=== PATIENT | female | born 1945 | race Hispanic/Latino ===

== ENCOUNTER 2018-05-29 09:16 | Emergency (ER) | payer OTHER ==
[2018-05-29 09:20] VITALS: BMI 26.2
[2018-05-29 09:21] VITALS: TEMP 97.7; O2SAT 97
--- NOTE | 2018-05-29 10:16 | ED PDOC ---
HPI: Skin/Bite Injury Time Seen by Provider: 05/29/18 09:53 Chief Complaint (Nursing): ENT Problem Chief Complaint (Provider): Lesion on Right Ear History Per: Patient History/Exam Limitations: no limitations Onset/Duration Of Symptoms: Other (8 months ) Current Symptoms Are (Timing): Still Present Quality Of Symptoms: Painful, Itching Additional Complaint(s): 72 year old female presents to the ED for an evaluation of lesion on the right ear onset for 8 months. Patient states it is itchy and painful for which she has not seen her primary care provider. Otherwise, patient denies fever, headache or bleeding. PMD: Non [facility] Provider Past Medical History Reviewed: Historical Data, Nursing Documentation, Vital Signs Vital Signs: Last Vital Signs Temp 97.7 F 05/29/18 09:20 Pulse 65 05/29/18 09:20 Resp 16 05/29/18 09:20 BP 151/76 H 05/29/18 09:20 Pulse Ox 97 05/29/18 09:20 - Medical History PMH: Diabetes (pre-diabetic ) - Surgical History Surgical History: Hernia Repair - Family History Family History: States: Unknown Family Hx - Social History Current smoker - smoking cessation education provided: No Alcohol: None Drugs: Denies - Home Medications Home Medications: Ambulatory Orders Medication Instructions Recorded Mupirocin 2% Cream [Bactroban 1 applic TOP BID #1 tube 05/29/18 Cream] - Allergies Allergies/Adverse Reactions: Allergies Allergy/AdvReac Type Severity Reaction Status Date / Time No Known Allergies Allergy Verified 05/29/18 09:34 Review of Systems ROS Statement: Except As Marked, All Systems Reviewed And Found Negative Constitutional: Negative for: Fever ENT: Positive for: Ear Pain (right) Neurological: Negative for: Headache Physical Exam - Reviewed Nursing Documentation Reviewed: Yes Vital Signs Reviewed: Yes - Physical Exam Appears: Positive for: Non-toxic, No Acute Distress Head Exam: Positive for: ATRAUMATIC, NORMAL INSPECTION, NORMOCEPHALIC Skin: Positive for: Normal Color, Warm, Dry. Negative for: Rash ENT: Positive for: Other (wound and scar on the uppper lobe of the ear with no swelling, redness or erythema ) Neurological/Psych: Positive for: Awake, Alert, Normal Tone, Oriented (x3) - ECG O2 Sat by Pulse Oximetry: 97 (RA) Pulse Ox Interpretation: Normal Medical Decision Making Medical Decision Making: Time: 934 Impression: lesion of skin on right ear Differential Diagnosis: basal cell carcinoma Plan: Patient was referred to the card decorator and antibiotic ointment prescribed. Scribe Attestation: Documented by Mo Mancilla, acting as a scribe for Ezequiel Roberts MD Provider Scribe Attestation: All medical record entries made by the Scribe were at my direction and personally dictated by me. I have reviewed the chart and agree that the record accurately reflects my personal performance of the history, physical exam, medical decision making, and the department course for this patient. I have also personally directed, reviewed, and agree with the discharge instructions and disposition. Disposition - Clinical Impression Clinical Impression: Lesion of right earlobe - Patient ED Disposition Is Patient to be Admitted: No Doctor Will See Patient In The: Office Counseled Patient/Family Regarding: Studies Performed, Diagnosis, Need For Followup - Disposition Referrals: [facility] [Outside] [email or web address] [Outside] Disposition: Routine/Home Disposition Time: 10:20 Additional Instructions: Follow up with your PCP and dermatology within 1 week. ENRICO MCFARLAND, thank you for letting us take care of you today. Your provider was Ezequiel Roberts MD and you were treated for RT EAR INJURY. The emergency medical care you received today was directed at your acute symptoms. If you were prescribed any medication, please fill it and take as directed. It may take several days for your symptoms to resolve. Return to the Emergency Department if your symptoms worsen, do not improve, or if you have any other problems. Please contact your doctor or call one of the physicians/clinics you have been referred to that are listed on the Patient Visit Information form that is included in your discharge packet. Bring any paperwork you were given at discharge with you along with any medications you are taking to your follow up visit. Our treatment cannot replace ongoing medical care by a primary care provider outside of the emergency department. Thank you for allowing the [facility] team to be part of your care today. Prescriptions: Mupirocin 2% Cream [Bactroban Cream] 1 applic TOP BID #1 tube Instructions: Skin Cancer (Non-Melanoma) Forms: [employer] (Greenlandic) Print Language: SERBIAN
[2018-05-29 11:43] VITALS: BP 145/80; PULSE 70; RESP 18
== END 2018-05-29 10:41 | disposition home or self-care (01) ==
LOC: H.ER 09:16
DX: H93.91 Unspecified disorder of right ear (principal)